=== PATIENT | male | born 1970 | race Caucasian/White ===

== ENCOUNTER 2021-06-11 02:35 | Emergency (ER) | payer BC ==
--- OUTSIDE RECORDS SUMMARY | 2021-06-11 02:39 | XMS REPORT | Continuity of Care Document ---
:[address] [facility] t Address [address] [place] [address] Care Team Providers Name Role Phone Unavailable Unavailable Unavailable Problems This patient has no known problems. Allergies, Adverse Reactions, Alerts This patient has no known allergies or adverse reactions. Medications This patient has no known medications. Procedures This patient has no known procedures. Encounters Start End Encounter Admission Attending Care Care Encounter Source Date/Time Date/Time Type Type Clinicians Facility Department ID 2021-06-02 2021-06-02 ambulatory [facility] [id number] 2021-05-14 2021-05-14 ambulatory [facility] [id number] [facility] 2021-05-12 2021-05-12 ambulatory [facility] [id number] [facility] 2021-05-10 2021-05-10 ambulatory [facility] [id number] [facility] 2021-05-10 2021-05-10 ambulatory [facility] [id number] [facility] Results This patient has no known results.
--- NOTE | 2021-06-11 07:05 | EDPHYS ---
Physician Documentation [facility] Name: Valentin Lopez Age: 50 yrs Sex: Male : 1970 Arrival Date: 06/11/2021 Time: 02:39 Bed 23 Private MD: ED Physician Chuck Alejandra HPI: 06/11 05:31 This 50 yrs old Male presents to ER via Ambulatory with complaints of Problem With mh7 Urinary Catheter. 05:31 The patient presents with a Rangel catheter problem, is not draining. Onset: The mh7 symptoms/episode began/occurred yesterday. Modifying factors: The symptoms are alleviated by nothing, the symptoms are aggravated by nothing. Associated signs and symptoms: Pertinent negatives: abdominal pain, constipation, diarrhea, dysuria, fever, hematuria, nausea, vomiting. Severity of symptoms: At their worst the symptoms were mild, last night, in the emergency department the symptoms are unchanged. Historical: - Allergies: 05:06 No Known Allergies; bb - Home Meds: 05:06 None [Active]; bb - Immunization history:: Adult Immunizations up to date, Client reports having NOT received the Covid vaccine. - Social history:: Smoking status: unknown. ROS: 05:31 Constitutional: Negative for fever, chills, and weight loss, Eyes: Negative for injury, mh7 pain, redness, and discharge, ENT: Negative for injury, pain, and discharge, Neck: Negative for injury, pain, and swelling, Cardiovascular: Negative for chest pain, palpitations, and edema, Respiratory: Negative for shortness of breath, cough, wheezing, and pleuritic chest pain, Abdomen/GI: Negative for abdominal pain, nausea, vomiting, diarrhea, and constipation, Back: Negative for injury and pain, MS/Extremity: Negative for injury and deformity, Skin: Negative for injury, rash, and discoloration, Neuro: Negative for headache, weakness, numbness, tingling, and seizure, Psych: Negative for depression, anxiety, suicide ideation, homicidal ideation, and hallucinations, Allergy/Immunology: Negative for hives, rash, and allergies, Endocrine: Negative for neck swelling, polydipsia, polyuria, polyphagia, and marked weight changes, Hematologic/Lymphatic: Negative for swollen nodes, abnormal bleeding, and unusual bruising. Exam: 05:31 Constitutional: This is a well developed, well nourished patient who is awake, alert, mh7 and in no acute distress. Head/Face: Normocephalic, atraumatic. Eyes: Pupils equal round and reactive to light, extra-ocular motions intact. Lids and lashes normal. Conjunctiva and sclera are non-icteric and not injected. Cornea within normal limits. Periorbital areas with no swelling, redness, or edema. Neck: Trachea midline, no thyromegaly or masses palpated, and no cervical lymphadenopathy. Supple, full range of motion without nuchal rigidity, or vertebral point tenderness. No Meningismus. Chest/axilla: Normal chest wall appearance and motion. Nontender with no deformity. No lesions are appreciated. Cardiovascular: Regular rate and rhythm with a normal S1 and S2. No gallops, murmurs, or rubs. Normal PMI, no JVD. No pulse deficits. Respiratory: Lungs have equal breath sounds bilaterally, clear to auscultation and percussion. No rales, rhonchi or wheezes noted. No increased work of breathing, no retractions or nasal flaring. Skin: Warm, dry with normal turgor. Normal color with no rashes, no lesions, and no evidence of cellulitis. MS/ Extremity: Pulses equal, no cyanosis. Neurovascular intact. Full, normal range of motion. Neuro: Awake and alert, GCS 15, oriented to person, place, time, and situation. Cranial nerves II-XII grossly intact. Motor strength 5/5 in all extremities. Sensory grossly intact. Cerebellar exam normal. Normal gait. Psych: Awake, alert, with orientation to person, place and time. Behavior, mood, and affect are within normal limits. 05:31 Abdomen/GI: Inspection: Suprapubic catheter in place without surrounding erythema, mh7 swelling, tenderness, or discharge, Bowel sounds: normal, in all quadrants, Palpation: abdomen is soft and non-tender, in all quadrants, Rectal exam: the exam is deferred, because of patient request, Indicators: McBurney's point is not tender, Palencia's sign is negative, Rovsing's sign is negative, Obturator sign is negative, Psoas sign is negative, Liver: no appreciated palpable abnormalities, Hernia: not appreciated. Vital Signs: 05:05 BP 151 / 109; Pulse 83; Resp 18 S; Temp 97.7(O); Pulse Ox 100% on R/A; Weight 99.79 kg bb (R); Height 6 ft. 0 in. (182.88 cm) (R); Pain 6/10; 07:16 BP 147 / 89; Pulse 85; Resp 18; Temp 97.9; Pulse Ox 99% ; bp 05:05 Body Mass Index 29.84 (99.79 kg, 182.88 cm) bb MDM: 06:12 Patient medically screened. [facility] 07:02 Data reviewed: vital signs, nurses notes. ED course: Patient catheter was flushed with jmm NS. Now has drained approx 800 ml. Patient states feeling much better.. Administered Medications: No medications were administered Disposition: 07: Co-signature as Attending Physician, Chuck Alejandra MD. mh7 Disposition Summary: 06/11/21 07:05 Discharge Ordered Location: Home [facility] Condition: Stable [facility] Diagnosis - Dysfunctional Urinary Catheter [facility] Followup: [facility] - With: Private Physician - When: 5 - 6 days - Reason: Recheck today's complaints, Continuance of care, Re-evaluation by your physician Discharge Instructions: - Discharge Summary Sheet [facility] - Suprapubic Catheter Home Guide [facility] Forms: - Medication Reconciliation Form [facility] - Thank You Letter [facility] - Antibiotic Education [facility] - Prescription Opioid Use [facility] Signatures: Benji Meléndez PA PA jmm Ballard, Brenda, RN RN John Geiger, RN RN Chuck Rivera MD MD mh7
--- NOTE | 2021-06-11 07:05 | ER ---
Nurse's Notes [facility] Name: Valentin Lopez Age: 50 yrs Sex: Male : 1970 Arrival Date: 06/11/2021 Time: 02:39 Bed 23 Private MD: Diagnosis: Dysfunctional Urinary Catheter Presentation: 06/11 05:05 Chief complaint: Patient states: he has a suprapubic catheter x 1 month which is bb stopped up and causing him some discomfort. Coronavirus screen: At this time, the client does not indicate any symptoms associated with coronavirus-19. Ebola Screen: No symptoms or risks identified at this time. Initial Sepsis Screen: Does the patient meet any 2 criteria? No. Patient's initial sepsis screen is negative. Does the patient have a suspected source of infection? No. Patient's initial sepsis screen is negative. Risk Assessment: Do you want to hurt yourself or someone else? Patient reports no desire to harm self or others. Onset of symptoms was June 11, 2021. 05:05 Method Of Arrival: Ambulatory bb 05:05 Acuity: JANICE 3 bb Triage Assessment: 05:06 General: Appears uncomfortable, Behavior is calm, cooperative. Pain: Complains of pain bb in pelvis. Neuro: Level of Consciousness is awake, alert, obeys commands, Oriented to person, place, time, situation. Cardiovascular: Capillary refill < 3 seconds Patient's skin is warm and dry. Respiratory: Respiratory effort is even, unlabored, Respiratory pattern is regular. GI: Reports lower abdominal pain. Derm: Skin is pink, warm \T\ dry. Musculoskeletal: Circulation, motion, and sensation intact. Historical: - Allergies: 05:06 No Known Allergies; bb - Home Meds: 05:06 None [Active]; bb - Immunization history:: Adult Immunizations up to date, Client reports having NOT received the Covid vaccine. - Social history:: Smoking status: unknown. Screenin:16 Abuse screen: Denies threats or abuse. Denies injuries from another. Nutritional bp screening: No deficits noted. Tuberculosis screening: No symptoms or risk factors identified. Fall Risk None identified. Assessment: 05:05 General: SEE TRIAGE NOTE. bp 07:16 Reassessment: PT D/C HOME AMBULATORY, DX WITH CATHETER MALFUNCTION. bp Vital Signs: 05:05 BP 151 / 109; Pulse 83; Resp 18 S; Temp 97.7(O); Pulse Ox 100% on R/A; Weight 99.79 kg bb (R); Height 6 ft. 0 in. (182.88 cm) (R); Pain 6/10; 07:16 BP 147 / 89; Pulse 85; Resp 18; Temp 97.9; Pulse Ox 99% ; bp 05:05 Body Mass Index 29.84 (99.79 kg, 182.88 cm) ED Course: 02:39 Patient arrived in ED. bradley 05:06 Chuck Alejandra MD is Attending Physician. Kim 05:06 Triage completed. bb 05:06 Arm band placed on Patient placed in an exam room, on a stretcher, on pulse oximetry. bb 06:03 Benji Meléndez PA is PHCP. samanta 07:15 No provider procedures requiring assistance completed. Patient did not have IV access bp during this emergency room visit. 07:16 John Crouch, RN is Primary Nurse. bp 07:16 Patient has correct armband on for positive identification. Bed in low position. Call bp light in reach. Side rails up X2. Administered Medications: No medications were administered Outcome: 07:05 Discharge ordered by . [facility] 07:15 Discharged to home ambulatory. bp 07:15 Condition: stable 07:15 Discharge instructions given to patient, Instructed on discharge instructions, follow up and referral plans. Demonstrated understanding of instructions, follow-up care. 07:20 Patient left the ED. bp Signatures: Benji Meléndez PA PA jmm Ballard, Brenda RN RN John Geiger, BETH RN Chuck Rivera MD MD [facility] Caroline Siegel
[2021-06-11 07:27] VITALS: BP 147/89; TEMP 97.9; O2SAT 99
== END 2021-06-11 07:20 | disposition home or self-care (01) ==
LOC: ER 02:35
DX: T83.098A Other mechanical complication of other urinary catheter, initial encounter (principal)
CPT/HCPCS: 99283

== ENCOUNTER 2021-06-12 16:35 | Emergency (ER) | payer BC ==
--- OUTSIDE RECORDS SUMMARY | 2021-06-12 16:38 | XMS REPORT | Continuity of Care Document ---
:1970 Author Organization [facility] t Address [address] [place] [address] Care Team Providers Name Role Phone Unavailable [...] Department ID 2021-06-02 2021-06-02 ambulatory [facility] [id number] [facility] 2021-05-14 2021-05-14 ambulatory [facility] [id number] [facility] 2021-05-12 2021-05-12 ambulatory [facility] [id number] [facility] 2021-05-10 2021-05-10 ambulatory [facility] [id number] [facility] 2021-05-10 2021-05-10 ambulatory [facility] [id number] [facility] Results This patient has no known results.
--- NOTE | 2021-06-12 17:55 | ER ---
Nurse's Notes [facility] Name: Valentin Lopez Age: 50 yrs Sex: Male : 1970 Arrival Date: 06/12/2021 Time: 16:39 Bed Waiting Private MD: Diagnosis: Presentation: 06/12 17:27 Chief complaint: Patient states: was in here at 4 am, his suprapubic catheter was iw clogged, they irrigated it but now it's clogged again. Coronavirus screen: At this time, the client does not indicate any symptoms associated with coronavirus-19. Ebola Screen: Patient negative for fever greater than or equal to 101.5 degrees Fahrenheit, and additional compatible Ebola Virus Disease symptoms Patient denies exposure to infectious person. Patient denies travel to an Ebola-affected area in the 21 days before illness onset. No symptoms or risks identified at this time. Initial Sepsis Screen: Does the patient meet any 2 criteria? No. Patient's initial sepsis screen is negative. Does the patient have a suspected source of infection? No. Patient's initial sepsis screen is negative. Risk Assessment: Do you want to hurt yourself or someone else? Patient reports no desire to harm self or others. Onset of symptoms was June 12, 2021. 17:27 Method Of Arrival: Ambulatory iw 17:27 Acuity: JANICE 3 iw Historical: - Allergies: 17:28 No Known Allergies; iw - Home Meds: 17:28 None [Active]; iw - PMHx: 17:28 None; iw - PSHx: 17:28 None; iw Vital Signs: 17:27 BP 129 / 90; Pulse 87; Resp 16; Temp 97.3; Pulse Ox 98% ; Weight 99.79 kg; Height 6 ft. iw 0 in. (182.88 cm); 17:27 Body Mass Index 29.84 (99.79 kg, 182.88 cm) iw ED Course: 16:39 Patient arrived in ED. ds1 17:28 Triage completed. iw 17:29 Arm band placed on. iw Administered Medications: No medications were administered Outcome: 17:55 Patient left the ED. iw Signatures: Laurie Astorga ds1 Claudia Ferris RN RN iw Corrections: (The following items were deleted from the chart) 17:29 17:27 Chief complaint: Patient states: was in here at 4 am, his catheter was clogged, iw they irrigated it but now it's clogged again iw 17: 17:28 PMHx: Unable to Obtain; iw iw
[2021-06-12 18:03] VITALS: BP 129/90; TEMP 97.3; O2SAT 98
== END 2021-06-12 17:55 | disposition left against medical advice (07) ==
LOC: ER 16:35
DX: T83.091A Other mechanical complication of indwelling urethral catheter, initial encounter (principal); Z53.21 Procedure and treatment not carried out due to patient leaving prior to being seen by health care provider
CPT/HCPCS: 99281

== ENCOUNTER 2021-06-25 14:44 | Emergency (ER) | payer BC ==
--- OUTSIDE RECORDS SUMMARY | 2021-06-25 14:47 | XMS REPORT | Continuity of Care Document ---
:[address] [facility] t Address [address] [place] [address] Care Team Providers Name Role Phone SHARLA DARLING Attending Clinician Unavailable SHARLA DARLING Admitting Clinician Unavailable Payers Payer Name Policy Type Policy Number Effective Date Expiration Date S ource Problems This patient has no known problems. Allergies, Adverse Reactions, Alerts This patient has no known allergies or adverse reactions. Medications This patient has no known medications. Procedures This patient has no known procedures. Encounters Start End Encounter Admission Attending Care Care Encounter Source Date/Time Date/Time Type Type Clinicians Facility Department ID 2021-06-15 Outpatient DREW DARLING Surgery [id number] [facility] 09:02:59 SHARLA 2021-06-18 2021-06-18 amb[facility] [id number] [facility] 2021-06-14 2021-06-14 ambulatory [facility] [id number] [facility] 2021-06-02 2021-06-02 ambulatory [facility] [id number] [facility] 2021-05-14 2021-05-14 ambulatory [facility] [id number] [facility] 2021-05-12 2021-05-12 ambulatory [facility] [id number] [facility] 2021-05-10 2021-05-10 ambulatory [facility] [id number] [facility] 2021-05-10 2021-05-10 ambulatory [facility] [id number] [facility]00 [facility] Results This patient has no known results.
--- NOTE | 2021-06-25 17:47 | ER ---
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 About an hour ago the catheter came out and it began to bleed, pt states 'I pushed it back in to stop the bleeding; not too sure if its back in the bladder'. Coronavirus screen: Vaccine status: Patient reports being unvaccinated. Client denies travel out of the [place] in the last 14 days. Ebola Screen: Patient negative for fever greater than or equal to 101.5 degrees Fahrenheit, and additional compatible Ebola Virus Disease symptoms. Initial Sepsis Screen: Does the patient meet any 2 criteria? No. Patient's initial sepsis screen is negative. Does the patient have a suspected source of infection? No. Patient's initial sepsis screen is negative. Risk Assessment: Do you want to hurt yourself or someone else? Patient reports no desire to harm self or others. Onset of symptoms was June 25, 2021. 15:13 Method Of Arrival: Ambulatory vg1 15:13 Acuity: JANICE 3 vg1 Triage Assessment: 15:16 General: Appears uncomfortable, Behavior is calm, cooperative. Pain: Complains of pain vg1 in groin and suprapubic area Pain currently is 3 out of 10 on a pain scale. Historical: - Allergies: 15:16 No Known Allergies; vg1 - Immunization history:: Client reports having NOT received the Covid vaccine. - Social history:: Smoking status: Patient denies any tobacco usage or history of. Screenin:54 Abuse screen: Denies threats or abuse. Nutritional screening: No deficits noted. tw2 Tuberculosis screening: No symptoms or risk factors identified. Fall Risk None identified. Assessment: 17:49 Reassessment: Patient appears in no apparent distress at this time. No changes from tw2 previously documented assessment. Patient and/or family updated on plan of care and expected duration. Pain level reassessed. Patient is alert, oriented x 3, equal unlabored respirations, skin warm/dry/pink. Vital Signs: 15:13 BP 148 / 93; Pulse 93; Resp 18; Temp 98.3; Pulse Ox 99% ; Weight 99.79 kg; Height 6 ft. vg1 0 in. (182.88 cm); Pain 3/10; 15:53 BP 134 / 89; Pulse 90; Resp 17; Pulse Ox 96% on R/A; tw2 16:45 BP 132 / 92; Pulse 86; Resp 17 S; Pulse Ox 98% on R/A; jg9 17:49 BP 144 / 73; Pulse 91; Resp 17; Pulse Ox 98% on R/A; tw2 15:13 Body Mass Index 29.84 (99.79 kg, 182.88 cm) vg1 ED Course: 14:46 Patient arrived in ED. mr 15:06 Bed in low position. Call light in reach. Side rails up X2. Adult w/ patient. Cardiac tw2 monitor on. Pulse ox on. NIBP on. 15:12 Glenda Torres, RN is Primary Nurse. tw2 15:16 Triage completed. vg1 15:16 Arm band placed on. vg1 15:25 Eric Hahn MD is Attending Physician. kdr 16:14 Bladder scan completed. 270mL. dh3 16:57 ED physician to see patient. Physician and tech at bedside-suprapubic cath replacement jg9 attempt. 17:00 suprapubic patel insertion, 12Fr using sterile technique to gravity drainage. dh3 17:41 Bladder scan completed. 0mL. dh3 17:54 Bladder irrigated via Patient instructed on how to perform irrigation per urologist; jg9 Dr. Barker-patient able to perform irrigation successfully. 17:58 Patient did not have IV access during this emergency room visit. tw2 Administered Medications: No medications were administered Outcome: 17:47 Discharge ordered by . kdr 17:57 Discharged to home ambulatory, Pt is leaving with suprapubic catheter and supplies for tw2 irrigation. 17:57 Condition: stable 17:57 Discharge instructions given to patient, Instructed on discharge instructions, follow up and referral plans. instructed on suprapubic catheter irrigation per urology order. Demonstrated understanding of instructions, follow-up care. 18:00 Patient left the ED. tw2 Signatures: Eric Hahn MD MD kdr Rivera, Mary mr Glenda Torres RN RN tw2 Lindsay Villarreal 3 Wendy Daly, BETH RN vg1 Kimberly Garcia RN RN jg9 Corrections: (The following items were deleted from the chart) 17:56 17:54 Bladder irrigated via Patient instructed on how to perform irrigation per jg9 urologist-patient able to irrigate after being shown. jg9
--- NOTE | 2021-06-25 17:47 | EDPHYS ---
Physician Documentation [facility] Name: Valentin Lopez Age: 50 yrs Sex: Male : 1970 Arrival Date: 06/25/2021 Time: 14:46 Bed 8 Private MD: ED Physician Eric Hahn HPI: 06/25 16:29 This 50 yrs old Male presents to ER via Ambulatory with complaints of Urinary Problem, kdr Problem With Urinary Catheter. 16:29 The patient presents with a Rangel catheter problem, is not draining, was pulled out kdr accidentally. Onset: The symptoms/episode began/occurred this morning. Modifying factors: The symptoms are alleviated by nothing, the symptoms are aggravated by nothing. Associated signs and symptoms: The patient has no apparent associated signs or symptoms. Severity of symptoms: At their worst the symptoms were mild, in the emergency department the symptoms are unchanged. The patient has not experienced similar symptoms in the past. The patient has been recently seen by a physician: Had a suprapubic Rangel placed about 10 days ago. This was done by Dr. Barker.. . Historical: - Allergies: 15:16 No Known Allergies; vg1 - Immunization history:: Client reports having NOT received the Covid vaccine. - Social history:: Smoking status: Patient denies any tobacco usage or history of. ROS: 16:29 Constitutional: Negative for fever, chills, and weight loss, Eyes: Negative for injury, kdr pain, redness, and discharge, ENT: Negative for injury, pain, and discharge, Neck: Negative for injury, pain, and swelling, Cardiovascular: Negative for chest pain, palpitations, and edema, Respiratory: Negative for shortness of breath, cough, wheezing, and pleuritic chest pain, Back: Negative for injury and pain, : Negative for injury, bleeding, discharge, and swelling, MS/Extremity: Negative for injury and deformity, Skin: Negative for injury, rash, and discoloration, Neuro: Negative for headache, weakness, numbness, tingling, and seizure activity. Psych: Negative for depression, anxiety, suicide ideation, homicidal ideation, and hallucinations, Allergy/Immunology: Negative for hives, rash, and allergies, Endocrine: Negative for neck swelling, polydipsia, polyuria, polyphagia, and marked weight changes, Hematologic/Lymphatic: Negative for swollen nodes, abnormal bleeding, and unusual bruising. 16:29 Abdomen/GI: Positive for abdominal pain, of the suprapubic area. Exam: 16:31 Constitutional: This is a well developed, well nourished patient who is awake, alert, kdr and in no acute distress. Head/Face: Normocephalic, atraumatic. 16:31 Abdomen/GI: Inspection: abdomen appears normal, Bowel sounds: active, Palpation: soft, nontender, There is a suprapubic catheter in place. There is no obvious bleeding. Has no fluid in the Rangel bag or in the Rangel catheter itself. The patient states that there has been no output since this morning. Vital Signs: 15:13 BP 148 / 93; Pulse 93; Resp 18; Temp 98.3; Pulse Ox 99% ; Weight 99.79 kg; Height 6 ft. vg1 0 in. (182.88 cm); Pain 3/10; 15:53 BP 134 / 89; Pulse 90; Resp 17; Pulse Ox 96% on R/A; tw2 16:45 BP 132 / 92; Pulse 86; Resp 17 S; Pulse Ox 98% on R/A; jg9 17:49 BP 144 / 73; Pulse 91; Resp 17; Pulse Ox 98% on R/A; tw2 15:13 Body Mass Index 29.84 (99.79 kg, 182.88 cm) vg1 Procedures: 16:29 Rangel cath inserted by myself - 12 Fr. Returned clear yellow urine. To gravity kdr drainage. Balloon inflated. other Patient tolerated well and did not complain of any pain whatsoever with inflation of the Rangel balloon. 16:31 Performed Bladder scanner: 375 mL. kdr MDM: 17:47 Patient medically screened. kdr 17:49 Data reviewed: vital signs, nurses notes, lab test result(s), radiologic studies. kdr Counseling: I had a detailed discussion with the patient and/or guardian regarding: the historical points, exam findings, and any diagnostic results supporting the discharge/admit diagnosis, lab results, radiology results, the need for outpatient follow up. Physician consultation: Josh Barker MD regarding consult, patient's condition, and will see patient in office, He asked that we attempt to place a smaller catheter in the meatus where the prior Rangel has been dislodged.. 17:50 ED course: Dr. Barker was informed of the success catheter placement. kdr 06/25 16:26 Order name: COVID-19 SARS RT PCR (Document "Date of Onset" if Symptomatic); Complete eb Time: 17:41 06/25 15:52 Order name: Bladder Scanner; Complete Time: 16:14 kdr Administered Medications: No medications were administered Disposition Summary: 06/25/21 17:47 Discharge Ordered Location: Home kdr Problem: new kdr Symptoms: have improved kdr Condition: Stable kdr Diagnosis - Rangel catheter displacement kdr Followup: kdr - With: Private Physician - When: 2 - 3 days - Reason: If symptoms return, Further diagnostic work-up, Recheck today's complaints, Continuance of care, Re-evaluation by your physician Discharge Instructions: - Discharge Summary Sheet kdr - Suprapubic Catheter Replacement kdr - Suprapubic Catheter Home Guide kdr - Indwelling Urinary Catheter Care, Adult, [id number] kdr Forms: - Medication Reconciliation Form kdr - Thank You Letter kdr Signatures: Dispatcher [employer] EDEric Felipe MD MD kdr Wendy Daly RN RN vg1 Corrections: (The following items were deleted from the chart) 17:37 16:29 Rangel cath inserted by myself - 14 Fr. kdr kdr
[2021-06-25 18:15] VITALS: TEMP 98.3
[2021-06-25 18:18] VITALS: O2SAT 98
[2021-06-25 18:19] VITALS: BP 144/73
== END 2021-06-25 18:00 | disposition home or self-care (01) ==
LOC: ER 14:44
DX: T83.028A Displacement of other urinary catheter, initial encounter (principal); U07.1 COVID-19
CPT/HCPCS: 51700; 51702; 99284; U0003

== ENCOUNTER 2021-06-29 11:17 | Day surgery (SDC) | payer BC ==
[2021-06-23 12:19] LABS: Absolute Lymphocytes (CBC) 2.1 K/uL (0.7-4.9); Hematocrit 46.6 % (39.6-49.0); Lymphocytes % 23.3 % (15.3-44.8); MPV 8.9 fL (7.6-11.3); RBC Red Blood Cell Count 5.14 M/uL (4.33-5.43)
[2021-06-23 12:26] LABS: Protime INR 1.1
--- NOTE | 2021-06-23 12:37 | RAD REPORT ---
EXAM DESCRIPTION: RAD - Chest Pa And Lat (2 Views) - 06/23/2021 12:19 pm CLINICAL HISTORY: Pre Op pending urology procedure COMPARISON: No comparisons FINDINGS: Lines: None. Lungs: No evidence of edema or pneumonia. Pleural: No significant pleural effusions or pneumothorax. Elevated right hemidiaphragm. Cardiac: The heart size is within normal limits. Bones: No acute fractures. Other: IMPRESSION: No acute cardiopulmonary disease. Elevated right hemidiaphragm of uncertain chronicity.
[2021-06-23 12:59] LABS: Potassium 4.3 mmol/L (3.5-5.1)
[2021-06-29] MEDS ORDERED: Ringers Lactate 1,000 ML IV ONE (12:02)
[2021-06-29] MEDS ORDERED: ACETAMINOPHEN 500 MG TAB ONE (12:48)
[2021-06-29] MEDS ORDERED: CELECOXIB 100 MG CAPSULE ONE (12:48)
[2021-06-29] MEDS ORDERED: FENTANYL CITR 100 MCG/2 ML ONE ×2 (13:41→16:01)
[2021-06-29] MEDS ORDERED: MIDAZOLAM HCL 2 MG/2 ML INJ ONE (13:41)
[2021-06-29] MEDS ORDERED: propofoL 200 MG/20 ML VIAL IV ONE (13:41)
[2021-06-29] MEDS ORDERED: LIDOCAINE 2% MPF 5 ML VIAL ONE (14:21)
[2021-06-29] MEDS ORDERED: dexAMETHasone 10 MG/ML VIAL ONE (14:21)
[2021-06-29] MEDS ORDERED: CEFAZOLIN/SWI 2gm 2 GM/20 ML SYR ONE (14:58)
[2021-06-29] MEDS ORDERED: VANCOMYCIN 1 GM/VIAL ONE (15:06)
[2021-06-29] MEDS ORDERED: NA CHLORIDE 0.9% 100 ML IV ONE (15:08)
[2021-06-29] MEDS ORDERED: ROCURONIUM 50 MG/5 ML VIAL IV ONE (15:09)
[2021-06-29] MEDS ORDERED: CODEINE 30MG/APAP 300MG TAB PO PRN (17:25)
[2021-06-29] MEDS ORDERED: CODEINE 30MG/APAP 300MG TAB ONE (17:51)
[2021-06-29 18:39] VITALS: BP 128/89; TEMP 96.8; O2SAT 100
--- NOTE | 2021-06-29 18:49 | OP ---
Surgeon: SHARLA DARLING Preoperative Diagnoses: 1.Perineal scrotal/paraurethral mass. 2.Acute urinary retention with indwelling suprapubic catheter. 3.Staphylococcal epidermidis urinary colonization. Postoperative Diagnoses: 1.Perineal scrotal/paraurethral mass. 2.Acute urinary retention with indwelling suprapubic catheter. 3.Staphylococcal epidermidis urinary colonization. Principle Procedures: 1.Cystoscopy via the suprapubic site. 2.Urethroscopy and urethroscopic biopsy. 3.Suprapubic catheter exchange over a wire. 4.Suprapubic site dilation. 5.Perineal incision and biopsy of paraurethral lesion. Indication For Procedure: Mr. Lopez presented to the Urology Clinic with urinary retention and ov erflow incontinence associated with an obstructing paraurethral mass that potentially was invading th e urethra itself. An MRI described a suspected abscess extending from the perineal region at the ape x of the prostate to the perineal scrotal junction along the urethra and causing compression of the u rethra. As a result, a suprapubic catheter was placed and the patient has had significant intravesic al debris, which was required irrigations of the catheter on multiple occasions. Most recently, the suprapubic catheter was dislodged, likely for attempts to irrigate the balloon port of a Rangel cathet er used as a suprapubic tube, and after presentation to the emergency department several hours later, they were only able to place a 10-Chadian catheter into his bladder. As a result, he presents today for replacements and up sizing of the 10-Chadian suprapubic catheter and also to undergo more definiti ve biopsy of the mass. Procedure In Detail: The patient was consented in the preoperative holding area before being transfe rred to the operative suite where general anesthesia was induced. He was given Ancef 2 g IV antimicr obial prophylaxis and vancomycin 1 g IV antimicrobial prophylaxis given the Staphylococcus epidermidi s resistant to Ancef, in his urine. The case was then begun removing the suprapubic catheter and nancy cing the patient in the lithotomy position. His suprapubic area and perineal region were shaved, pre pped with Betadine, and draped in standard fashion. Pneumo boots were provided for DVT prophylaxis. Attempts to pass a 14-Chadian urethral catheter as a suprapubic tube were thwarted. As a result, I a ttempted cystoscopic evaluation of the area and found that there was a false passage in the anterior retropubic space, which was allowing coiling of the catheters, but an orthotopic entry into the bladd er was more superiorly, but too stenotic to pass anything larger than 12-Chadian successfully. As a r esult, I passed a heavy-duty Super Stiff guidewire into the bladder through that passageway and then dilated the tract using sequential dilators to 20-Chadian. I then attempted to pass a 16-Chadian [facility] ill-tip catheter over the wire into the bladder, but it would not pass. As a result, after multiple attempts at repeat cystoscopy and attempting to navigate the catheter over the wire, I eventually uti lized a 14-Chadian Rangel catheter, which did pass successfully into his bladder. I was able to irriga te the bladder with saline and get good return and efflux of light pink urine. As a result, 15 cc of sterile water were placed in the balloon, and the catheter was sewn to the suprapubic site using 2-0 nylon suture. I then turned my attention to the perineal region where the bulk of the mass was palp ated within the inferior border of the scrotum at the perineal scrotal junction. As result, I elevat ed the testicles within the scrotum and made an approximately 2-3 cm incision using a Pelham retra ctor to lateralize the skin of the incision, which was then deepened through the subcutaneous tissues using electrocautery. I then made an inferior stab incision and utilized a needle core biopsy devi e to take several core samples of the tissue while guiding the needle through it into the tissue by f leonie. The samples were sent for pathologic analysis in formalin. I then fulgurated the region and pa cked the area while I turned my attention to the urethra, and at this time, I utilized cold cup biops y forceps and the rigid cystoscope to biopsy the obstructing component of the tissue within the ureth ral lumen. At least 2 or 3 samples were taken and sent for pathologic analysis. I then turned my at tention back to the perineal incision, which I then copiously irrigated with normal saline before kyra sing the subcutaneous tissues with 3-0 Vicryl. The incision itself was closed in a running fashion u sing 4-0 Monocryl suture. The inferior stab incision was similarly ligated using a single interrupte d 4-0 Monocryl suture. A fluff gauze and tape were used as a pressure dressing across the perineum, and the patient was taken out of the lithotomy position. His suprapubic catheter had been connected to a floor bag, and was draining nice only remotely light pink urine. We thus dressed the suprapubic catheter site and placed into a catheter securing device on his upper thigh. He was then awakened f rom general anesthesia after being taken out of the lithotomy position, [facility] then transferred to the recovery room in good condition. Complications: None. Discharge Disposition: I will send him home with a prescription for Tylenol with Codeine as well as Macrobid to be taken twice daily for the next 7 days for the resistant Staphylococcus epidermidis and his urine associated with a suprapubic catheter. SARAH/COURTNEYL Voice ID: [id number] Report ID: [id number]
== END 2021-06-29 18:35 | disposition home or self-care (01) ==
LOC: OR 11:17
PROVIDERS: ATTEND Urology
PROC: 0TBD8ZX Excision of Urethra, Via Natural or Artificial Opening Endoscopic, Diagnostic (ICD-10-PCS; 2021-06-29)
PROC: 0WBM0ZX Excision of Male Perineum, Open Approach, Diagnostic (ICD-10-PCS; principal; 2021-06-29 13:30)
PROC: 0T2BX0Z Change Drainage Device in Bladder, External Approach (ICD-10-PCS; 2021-06-29 13:30)
DX: R22.2 Localized swelling, mass and lump, trunk (principal); R33.9 Retention of urine, unspecified; B95.8 Unspecified staphylococcus as the cause of diseases classified elsewhere; U07.1 COVID-19
CPT/HCPCS: 93005; 87088; 85025; 87086; 80048; 36415; 85610; 88305; 85730; 87077; 87186; 71046; 11106; 51705; 52204; U0002; J2704; J2250; J3010 ×2; J3370; J1100; J0690; J7120

== ENCOUNTER 2021-07-23 17:53 | Emergency (ER) | payer BC ==
--- OUTSIDE RECORDS SUMMARY | 2021-07-23 17:56 | XMS REPORT | Continuity of Care Document ---
:1970 [address] [facility] [place], [place] t Address [address] [place] [address] Care Team Providers Name Role Phone SHARLA DARLING Attending Clinician Unavailable SHARLA DARLING Admitting Clinician Unavailable Payers Payer Name Policy Type Policy Number Effective Date Expiration Date [facility] OS [id number] 2020 00:00:00 POS/PPO/EPO Problems This patient has no known problems. Allergies, Adverse Reactions, Alerts This patient has no known allergies or adverse reactions. Medications This patient has no known medications. Procedures This patient has no known procedures. Encounters Start End Encounter Admission Attending Care Care Encounter Source Date/Time Date/Time Type Type Clinicians Facility Department ID 2021-07-07 Outpatient [facility] [id number] [facility] [address] 14:39:53 [facility] 2021-07-07 Outpatient [facility] [id number] [facility] [address] 14:17:51 [id number] [facility] 2021-07-07 Outpatient [facility] [id number] [facility] 12:23:41 [id number] [facility] 2021-06-15 Outpatient [facility] [id number] 09:02:59 SHARLA 2021-07-14 2021-07-14 ambulatory [facility] [id number] [facility] 2021-07-07 2021-07-07 ambulatory [facility] [id number] [facility] 2021-06-18 2021-06-18 ambulatory [facility] [id number] [facility] 2021-06-14 2021-06-14 ambulatory [facility] [id number] [facility] 2021-06-02 2021-06-02 ambulatory [facility] [id number] [facility] 2021-05-14 2021-05-14 ambulatory [facility] [id number] [facility] 2021-05-12 2021-05-12 ambulatory [facility] [id number] [facility] 2021-05-10 2021-05-10 ambulatory [facility] [id number] [facility] 2021-05-10 2021-05-10 ambulatory [facility] [id number] [facility] Results This patient has no known results.
[2021-07-23] MEDS ORDERED: LIDOCAINE VISCOUS 2% SOLN 15 ML UDC ONE (20:42)
--- NOTE | 2021-07-23 22:30 | EDPHYS ---
Physician Documentation [facility] Name: Valentin Lopez Age: 50 yrs Sex: Male : 1970 Arrival Date: 07/23/2021 Time: 17:55 Bed 9 Private MD: ED Physician Chuck Alejandra HPI: 07/23 20:10 This 50 yrs old Male presents to ER via Ambulatory with complaints of Problem With cp Urinary Catheter. 20:10 The patient presents with urinary symptoms, unable to void. cp 20:10 Patient reports history of suprapubic catheter placement several months ago that was cp recently replaced several weeks ago by DR Barker. Patient reports history of ureteral mass causing obstruction. Reports suprapubic catheter was dislodged today around 1700 and has been unable to replace catheter. Historical: - Allergies: 18:03 No Known Allergies; ll1 - PMHx: 18:03 suprapubic cath; ll1 - Immunization history:: Client reports having NOT received the Covid vaccine. Flu vaccine is up to date. - Social history:: Smoking status: Patient denies any tobacco usage or history of. ROS: 20:15 : Positive for urine retention. cp 20:15 Eyes: Negative for injury, pain, redness, and discharge. cp 20:15 Constitutional: Negative for body aches, chills, fever, poor PO intake. 20:15 Cardiovascular: Negative for chest pain, palpitations. 20:15 Respiratory: Negative for cough, shortness of breath, wheezing. 20:15 Abdomen/GI: Negative for abdominal pain, vomiting, diarrhea, constipation. 20:15 Neuro: Negative for altered mental status, headache, weakness. 20:15 All other systems are negative. Exam: 20:20 Constitutional: The patient appears in no acute distress, alert, awake, cp non-diaphoretic, non-toxic, well developed, well nourished. 20:20 Head/Face: Normocephalic, atraumatic. cp 20:20 Eyes: Periorbital structures: appear normal, Conjunctiva: normal, no exudate, no injection, Sclera: no appreciated abnormality, Lids and lashes: appear normal, bilaterally. 20:20 ENT: External ear(s): are unremarkable, Nose: is normal, Mouth: Lips: moist, Oral mucosa: moist, Posterior pharynx: Airway: no evidence of obstruction, patent. 20:20 Chest/axilla: Inspection: normal. 20:20 Cardiovascular: Rate: normal. 20:20 Respiratory: the patient does not display signs of respiratory distress, Respirations: normal, no use of accessory muscles, no retractions, labored breathing, is not present, Breath sounds: are clear throughout, no decreased breath sounds, no stridor, no wheezing. 20:20 Abdomen/GI: Inspection: distension, is not seen, Bowel sounds: active, all quadrants, Palpation: soft, in all quadrants, nontender, in all quadrants, rebound tenderness, is not appreciated, involuntary guarding, is not appreciated. 20:20 Back: vertebral tenderness, is not appreciated. 20:20 Neuro: Orientation: to person, place \\T\\ time. Mentation: is normal, Motor: moves all fours, strength is normal, Sensation: is normal. Vital Signs: 18:02 BP 146 / 93; Pulse 81; Resp 17; Temp 98.7; Pulse Ox 99% ; Weight 102.06 kg; Height 6 ll1 ft. 0 in. (182.88 cm); Pain 0/10; 21:29 BP 153 / 90; Pulse 80; Resp 18; Temp 98.2; Pulse Ox 100% on R/A; Pain 0/10; giuliana 18:02 Body Mass Index 30.52 (102.06 kg, 182.88 cm) ll1 MDM: 19:56 Patient medically screened. 21:13 Physician consultation: Josh Barker MD was called at 21:13, left message on voicemail. 21:50 Physician consultation: Josh Barker MD was contacted at 21:50, regarding consult, wants myself and DR Alejandra to attempt replacement using 16F silicone catheter. 22:25 Physician consultation: Josh Barker MD was called at 22:25, was contacted at 22:25, regarding consult, patient's condition, will be unavailable for consult and requests transfer of patient. 23:05 Data reviewed: vital signs, nurses notes. 23:05 Physician consultation: was contacted at 23:00, regarding regarding transfer, to [facility]. patient's condition, spoke with urologist who will consult. 07/23 22:50 Order name: COVID-19 SARS RT PCR (Document "Date of Onset" if Symptomatic) 07/23 22:51 Order name: SARS-COV-2 RT PCR; Complete Time: 00:27 EDMS 07/23 23:06 Order name: Basic Metabolic Panel; Complete Time: 00:27 cp 07/24 00:27 Interpretation: Normal except: CL 108; GLUC 123; GFR 87. cp 07/23 23:06 Order name: CBC with Diff; Complete Time: 00:27 cp 07/24 00:27 Interpretation: Normal except: WBC 13.50; VIANEY% 78.5; LYM% 12.0; NEUT A 10.6. cp 07/23 23:06 Order name: Hepatic Function; Complete Time: 00:27 cp 07/23 23:06 Order name: Lipase; Complete Time: 00:27 cp 07/23 23:02 Order name: Bladder Scanner; Complete Time: 23:20 bb 07/23 23:06 Order name: IV Saline Lock; Complete Time: 23:33 cp 07/23 23:06 Order name: Labs collected and sent; Complete Time: 23:33 cp 07/24 00:28 Order name: NPO cp Administered Medications: 20:40 Drug: Lidocaine Gel 2 % 1 application Route: Mucous Membrane; giuliana 07/24 00:35 Not Given (Pt taken via EMS while I was off floorr): morphine 4 mg IVP once; RASS on giuliana ADMIN: Combtv4, Very Agttd3, Agttd2, Rstlss1, AlertClm0, Drwsy-1, Lt Sdtn-2, Mod Sdtn-3, Dp Sdtn-4, UnArsble-5 Disposition: 05:08 Co-signature as Attending Physician, Chuck Alejandra MD. 7 Disposition Summary: 07/23/21 22:29 Transfer Ordered Transfer Location: [facility] cp Condition: Stable cp Problem: new cp Symptoms: are unchanged cp Reason: Specialty(07/23/21 23:33) cp Accepting Physician: DR Lacie Hunter(07/24/21 00:36) giuliana Diagnosis - Retention of urine, unspecified cp Forms: - Medication Reconciliation Form cp - SBAR form cp Signatures: Dispatcher [employer] EDMS Maida Escamilla RN RN Stanley Driscoll PA PA cp Lewis, Lynsay, RN RN 1 Chuck Alejandra MD MD 7 Maida De Jesus, RN RN giuliana Corrections: (The following items were deleted from the chart) 07/23 23:33 22:29 Doctor cp cp : 22:29 Higher level of care cp cp : 23:33 DR Lacie Hunter cp cp 23:58 23:57 : Positive for urine retention, cp cp 07/24 00:36 07/23 23:33 DR Lacie Hunter cp giuliana
--- NOTE | 2021-07-23 22:30 | ER ---
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 Put it ll1 back in, but its not draining now. Coronavirus screen: Vaccine status: Patient reports being unvaccinated. Client denies travel out of the [place] in the last 14 days. At this time, the client does not indicate any symptoms associated with coronavirus-19. Ebola Screen: Patient denies travel to an Ebola-affected area in the 21 days before illness onset. Initial Sepsis Screen: Does the patient meet any 2 criteria? No. Patient's initial sepsis screen is negative. Does the patient have a suspected source of infection? No. Patient's initial sepsis screen is negative. Risk Assessment: Do you want to hurt yourself or someone else? Patient reports no desire to harm self or others. Onset of symptoms was July 23, 2021. 18:02 Method Of Arrival: Ambulatory ll1 18:02 Acuity: JANICE 4 ll1 Triage Assessment: 18:04 General: Appears in no apparent distress. Behavior is calm, cooperative, appropriate ll1 for age. Pain: Denies pain. : Reports suprapubic cath fell out. States he put it back in, but its not draining now. Historical: - Allergies: 18:03 No Known Allergies; ll1 - PMHx: 18:03 suprapubic cath; ll1 - Immunization history:: Client reports having NOT received the Covid vaccine. Flu vaccine is up to date. - Social history:: Smoking status: Patient denies any tobacco usage or history of. Screenin:29 Abuse screen: Denies threats or abuse. Denies injuries from another. Nutritional giuliana screening: No deficits noted. Tuberculosis screening: No symptoms or risk factors identified. Fall Risk None identified. Assessment: 21:29 Reassessment: Patient appears in no apparent distress at this time. No changes from giuliana previously documented assessment. General: The pt is awaiting the provider to contact his MD, due to the catheter "slipping out". The pt reports that "this happened before" and he has had the cath placed "about 2 weeks ago". . Pain: Denies pain. 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 giuliana 23:46 Reassessment: report called to [facility] for [facility]. bb 07/24 00:33 General: EMS was loading the pt up when I got back to the ED from taking another pt giuliana upstairs. . Vital Signs: 07/23 18:02 BP 146 / 93; Pulse 81; Resp 17; Temp 98.7; Pulse Ox 99% ; Weight 102.06 kg; Height 6 ll1 ft. 0 in. (182.88 cm); Pain 0/10; 21:29 BP 153 / 90; Pulse 80; Resp 18; Temp 98.2; Pulse Ox 100% on R/A; Pain 0/10; giuliana 18:02 Body Mass Index 30.52 (102.06 kg, 182.88 cm) ll1 ED Course: 17:55 Patient arrived in ED. rg4 18:03 Triage completed. ll1 18:04 Arm band placed on. ll1 19:53 Stanley Crocker PA is PHCP. cp 19:53 Chuck Alejandra MD is Attending Physician. cp 20:39 Maida De Jesus, BETH is Primary Nurse. giuliana 21:29 Placed in gown. Bed in low position. Call light in reach. giuliana 22:56 Warm blanket given. giuliana 23:00 COVID-19 SARS RT PCR (Document "Date of Onset" if Symptomatic) Sent. giuliana 23:00 SARS-COV-2 RT PCR Sent. giuliana 23:32 Initial lab(s) drawn, by me, sent to lab. Inserted saline lock: 22 gauge in left lt3 antecubital area, using aseptic technique. 07/24 00:06 transfer transportation to receiving facility. giuliana 00:34 No provider procedures requiring assistance completed. giuliana 00:34 Patient transferred, IV remains in place. giuliana Administered Medications: 07/23 20:40 Drug: Lidocaine Gel 2 % 1 application Route: Mucous Membrane; giuliana 07/24 00:35 Not Given (Pt taken via EMS while I was off floorr): morphine 4 mg IVP once; RASS on giuliana ADMIN: Combtv4, Very Agttd3, Agttd2, Rstlss1, AlertClm0, Drwsy-1, Lt Sdtn-2, Mod Sdtn-3, Dp Sdtn-4, UnArsble-5 Outcome: 07/23 21:32 Condition: stable giuliana 22:29 ER care complete, transfer ordered by MD. camarena 07/24 00:34 Transferred by ground EMS giuliana 00:36 Patient left the ED. giuliana Signatures: Maida Escamilla, RN RN bb Stanley Crocker PA PA cp Garcia, Rubi rg4 Liam Castillo RN RN ll1 Mary Carmen Burton lt3 Maida De Jesus RN RN giuliana Corrections: (The following items were deleted from the chart) 07/23 18:34 18:02 BP 146 / 93; Resp 17bpm; Temp 98.7F; 102.06 kg; Height 6 ft. 0 in.; BMI: 30.5; ll1 Pain 0/10; ll1
[2021-07-23 23:39] LABS: Absolute Lymphocytes (CBC) 1.6 K/uL (0.7-4.9); Hematocrit 43.7 % (39.6-49.0); MPV 8.5 fL (7.6-11.3); RBC Red Blood Cell Count 4.84 M/uL (4.33-5.43)
[2021-07-23 23:58] LABS: Albumin 3.5 g/dL (3.4-5.0); Bilirubin Direct 0.3 mg/dL (0-0.2); Bilirubin Total 1.3 mg/dL (0.2-1.0); Potassium 3.5 mmol/L (3.5-5.1); Protein, Total 7.6 g/dL (6.4-8.2)
[2021-07-24] MEDS ORDERED: MORPHINE 4 MG/ML SYR ONE (00:35)
[2021-07-24 01:18] VITALS: BP 153/90; TEMP 98.2; O2SAT 100
== END 2021-07-24 00:36 | disposition short-term general hospital (02) ==
LOC: ER 17:53
DX: R33.9 Retention of urine, unspecified (principal); T83.028A Displacement of other urinary catheter, initial encounter; Z20.822 Contact with and (suspected) exposure to COVID-19
CPT/HCPCS: 85025; 80048; 36415; 80076; 83690; 99285; U0003